=== PATIENT | male | born 1945 | race Caucasian/White ===

== ENCOUNTER 2016-11-15 19:04 | Emergency (ER) | payer OTHER ==
[~2016-11-15 19:04] MED LIST: ALTA2.5 PO; ALTA5 PO; AMB10 PO; AMB5 PO; AMBIEN PO; ASAB PO; ATEN25 PO; BUM1 PO; C25 PO; C5 PO; CORDARONE PO; COREG12 PO; COREG6 PO; COUMADIN3 MG; CRESTOR20 MG PO; EFFEX75 PO; ELIQUIS 5 MG TAB5 MG PO; FLEX PO; FLOMAX4 PO; FLONASE NAS; HALF81 PO; JANUMET 50/500 PO; KLOR-CON M2020 MEQ PO; LIPITOR40 PO; LORTAB 5 PO; LOTENSIN HCT1 TA2 PO; METAMUCIL CAN7 OZ PO; METHOC500B PO; METHOC750B PO; MEVACOR40 MG PO; MONODOX100 MG PO; MUCINEX600 MG PO; NEUR100 PO; NITROSTAT0.4 MG SL; OXYCOD PO; PACERONE100 MG PO; PCET PO; PEP20 PO; PLAVIX PO; PROTONIX PO; PROTONIX20 MG PO; PROZAC PO; RAN500 PO; REQUIP1 PO; RX NASAL SPRAY NAS; SPIRO25 PO; SPIRONOLACTONE PO; [UNRECOGNIZED DRUG - OTHER] PO; [UNRECOGNIZED DRUG - REMARK] TOP
== END 2016-11-15 19:10 | disposition home or self-care (01) ==
LOC: ER 19:04
DX: S46.912A Strain of unspecified muscle, fascia and tendon at shoulder and upper arm level, left arm, initial encounter (principal); Z79.82 Long term (current) use of aspirin; Z79.899 Other long term (current) drug therapy; X50.0XXA Overexertion from strenuous movement or load, initial encounter; Y93.89 Activity, other specified
CPT/HCPCS: 73030-LT; 99283